=== PATIENT | female | born 1975 | race Caucasian/White ===

== ENCOUNTER 2017-07-26 22:43 | Emergency (ER) | payer BC ==
[~2017-07-26] VITALS: Ht 172.7 cm; Wt 103.6 kg
[2017-07-26 23:04] LABS: COLLECTION METHOD CLEAN CATCH
[2017-07-26 23:11] LABS: MUCOUS Present /lpf; PH 6 (5-8); URINE APPEARANCE Cloudy; URINE BACTERIA Rare /hpf; URINE BILIRUBIN Negative (NEGATIVE); URINE BLOOD 3+ (NEGATIVE); URINE COLOR Yellow; URINE GLUCOSE Negative (NEGATIVE); URINE KETONE Trace (NEGATIVE); URINE LEUKOCYTE ESTERASE 1+ (NEGATIVE); URINE PROTEIN(semi-quant) 1+ (NEGATIVE)
[2017-07-26 23:18] LABS: ADD PATHOLOGY DIFF REVIEW NO
[2017-07-26 23:20] LABS: MEAN CELL VOLUME 81 fl (80.0-100.0); MEAN CORPUSCULAR HGB CONC 33 g/dl (33.0-37.0); MEAN PLATELET VOLUME 11.7 fl (7.4-10.4); PLATELET COUNT 376 K/mm3 (130-400); RED BLOOD COUNT 4.42 M/mm3 (4.10-5.30); WHITE BLOOD COUNT 14.2 K/mm3 (4.8-10.8)
[2017-07-26 23:23] LABS: HEMATOCRIT 35.9 % (37.0-47.0); HEMOGLOBIN 11.7 g/dl (12.5-16.0); MEAN CORPUSCULAR HEMOGLOBIN 26 pg (27.0-31.0)
[2017-07-26 23:32] LABS: ADJUSTED CALCIUM 9.7 mg/dL (8.4-10.2); ALBUMIN 3.9 gm/dL (3.5-5.0); BILIRUBIN,TOTAL 0.3 mg/dL (0.0-1.0); CALCIUM 9.6 mg/dL (8.4-10.2); CREATININE, serum 0.79 mg/dL (0.52-1.25); POTASSIUM 3.9 mmol/L (3.4-5.0); TOTAL PROTEIN 6.6 gm/dL (6.4-8.2)
[2017-07-26 23:35] LABS: BAND 3 % (0-10); LYMPHOCYTE 6 % (20.0-51.0); NEUTROPHILS 88 % (42.0-75.2); PLATELET ESTIMATE NORMAL (NORMAL); TOTAL CELLS COUNTED 100
[2017-07-27] MEDS ORDERED: BACTRIM DS 8001 TAB PO (00:07)
[2017-07-27 00:49] VITALS: TEMP 100.5
[2017-07-27 01:15] VITALS: BP 127/78; PULSE 105
== END 2017-07-27 01:18 | disposition home or self-care (01) ==
LOC: COL.ER 22:43
PROVIDERS: Family Medicine
DX: N12 Tubulo-interstitial nephritis, not specified as acute or chronic (principal); F41.9 Anxiety disorder, unspecified; Z98.51 Tubal ligation status
CPT/HCPCS: J0696; J2270; J2550; J7030

== ENCOUNTER → 2017-07-27 | Outpatient (CLI) | payer BC ==
[~2017-07-27] MED LIST: BACTRIM DS 8001 TAB PO
[2017-07-27 22:41] VITALS: BP 112/67; PULSE 98; TEMP 99.3
== END ==
LOC: COL.ER 22:36
DX: Z79.2 Long term (current) use of antibiotics (principal)
CPT/HCPCS: J0696

== ENCOUNTER 2018-07-04 14:01 | Emergency (ER) | payer BC ==
[~2018-07-04] VITALS: Ht 172.7 cm; Wt 97.7 kg
[2018-07-04 14:03] VITALS: TEMP 98.7
[2018-07-04 14:52] LABS: BASO # 0.1 (0.0-0.2); BASO % 0.9 % (0.0-2.0); EOS # 0.1 (0.0-0.7); EOS % 1.4 % (0-4.0); GRAN # 5.5 (1.4-6.5); GRAN % 56.5 % (42.2-75.2); HEMOGLOBIN 10.4 g/dl (12.5-16.0); LYMPH # 3.3 (1.2-3.4); LYMPH % 34.2 % (20.0-51.0); MEAN CELL VOLUME 73 fl (80.0-100.0); MEAN CORPUSCULAR HEMOGLOBIN 23 pg (27.0-31.0); MEAN CORPUSCULAR HGB CONC 31 g/dl (33.0-37.0); MEAN PLATELET VOLUME 11.1 fl (7.4-10.4); MONO # 0.7 (0.1-0.6); MONO % 6.7 % (1.7-9.3); PLATELET COUNT 392 K/mm3 (130-400); RED BLOOD COUNT 4.56 M/mm3 (4.10-5.30); REDCELL DISTRIBUTION WIDTH-CV 15.8 % (11.5-14.5)
[2018-07-04 14:55] LABS: HEMATOCRIT 33.1 % (37.0-47.0)
[2018-07-04 15:02] LABS: COLLECTION METHOD CLEAN CATCH
[2018-07-04 15:10] LABS: ALANINE AMINOTRANSFERASE 30 U/L (9-52); ALBUMIN 3.7 gm/dL (3.5-5.0); ALKALINE PHOSPHATASE 65 U/L (50-136); ANION GAP 6 mmol/L (7-16); AST,SGOT 44 U/L (15-37); BILIRUBIN,TOTAL 0.5 mg/dL (0.0-1.0); BLOOD UREA NITROGEN 9 mg/dL (7-17); CALCIUM 8.7 mg/dL (8.4-10.2); CARBON DIOXIDE 28 mmol/L (22-30); CHLORIDE 104 mmol/L (98-107); CREATININE, serum 0.57 mg/dL (0.52-1.25); GLUCOSE 100 mg/dL (74-106); POTASSIUM 3.8 mmol/L (3.4-5.0); SODIUM 137 mmol/L (137-145); TOTAL PROTEIN 6.5 gm/dL (6.4-8.2)
[2018-07-04 15:11] LABS: ACETAMINOPHEN < 10 ug/mL (10-30)
[2018-07-04 15:12] LABS: ALCOHOL(ethanol),MEDICAL < 10 mg/dL; SALICYLATE < 1.0 mg/dL
[2018-07-04 15:21] LABS: MUCOUS Present /lpf; PH 6 (5-8); SQUAMOUS EPITHELIAL 0-2 /hpf; URINE APPEARANCE Clear; URINE BACTERIA None Seen /hpf; URINE BILIRUBIN Negative (NEGATIVE); URINE BLOOD 3+ (NEGATIVE); URINE COLOR Yellow; URINE GLUCOSE Negative (NEGATIVE); URINE KETONE Negative (NEGATIVE); URINE LEUKOCYTE ESTERASE 1+ (NEGATIVE); URINE NITRATE Negative (NEGATIVE); URINE PROTEIN(semi-quant) Negative (NEGATIVE); URINE RBC 0-2 /hpf; URINE UROBILINOGEN Negative (NEGATIVE)
[2018-07-04 15:24] LABS: TRICYCLIC ANTIDEPRESS URINE NEGATIVE
[2018-07-04 23:30] VITALS: BP 114/70; PULSE 82
== END 2018-07-04 23:39 | disposition home or self-care (01) ==
LOC: COL.ER 14:01
PROVIDERS: Nurse Practitioner
DX: F32.9 Major depressive disorder, single episode, unspecified (principal); F41.9 Anxiety disorder, unspecified; F17.210 Nicotine dependence, cigarettes, uncomplicated

== ENCOUNTER → 2019-11-30 | Outpatient (CLI) | payer BC ==
[2019-11-30 13:11] LABS: BASO # 0.1 (0.0-0.2); EOS # 0.2 (0.0-0.7); EOS % 1.5 % (0-4.0); GRAN # 6.3 (1.4-6.5); GRAN % 60.2 % (42.2-75.2); HEMATOCRIT 37.6 % (37.0-47.0); HEMOGLOBIN 11.4 g/dl (12.5-16.0); LYMPH % 28.8 % (20.0-51.0); MEAN CELL VOLUME 74 fl (80.0-100.0); MEAN CORPUSCULAR HEMOGLOBIN 22 pg (27.0-31.0); MEAN CORPUSCULAR HGB CONC 30 g/dl (33.0-37.0); MEAN PLATELET VOLUME 10.5 fl (7.4-10.4); MONO # 0.8 (0.1-0.6); MONO % 7.9 % (1.7-9.3); PLATELET COUNT 403 K/mm3 (130-400); RED BLOOD COUNT 5.09 M/mm3 (4.10-5.30); REDCELL DISTRIBUTION WIDTH-CV 18.1 % (11.5-14.5)
[2019-11-30 13:20] LABS: ALBUMIN 4.3 gm/dL (3.5-5.0); BILIRUBIN,TOTAL 0.5 mg/dL (0.0-1.0); CALCIUM 9.2 mg/dL (8.4-10.2); CREATININE, serum 0.57 (0.52-1.25); POTASSIUM 4.1 mmol/L (3.4-5.0); TOTAL PROTEIN 7.3 gm/dL (6.4-8.2)
[2019-11-30 13:51] LABS: THYROID STIMULATING HORMONE 1.21 uIU/mL (0.465-4.680)
== END ==
LOC: COL.LAB 12:40
PROVIDERS: Family Medicine
DX: R53.83 Other fatigue (principal); R19.7 Diarrhea, unspecified

== ENCOUNTER → 2020-12-22 | Outpatient (CLI) | payer BC | LOC: COL.RAD 12:15 | DX: N92.0 Excessive and frequent menstruation with regular cycle (principal); R93.89 Abnormal findings on diagnostic imaging of other specified body structures; N85.2 Hypertrophy of uterus ==

== ENCOUNTER 2022-08-05 06:58 | Day surgery (SDC) | payer BC ==
[~2022-08-05] VITALS: Ht 172.7 cm; Wt 95.0 kg
[2022-08-05 08:06] VITALS: BP 118/89; PULSE 77; TEMP 97.2
[2022-08-05] MEDS ORDERED: ZOLOFT 100MG100 MG PO (08:09)
[2022-08-05] MEDS ORDERED: MOUNJARO7.5 MG/0.5 SQ (08:10)
[2022-08-05 08:35] VITALS: BP 109/97; PULSE 81; TEMP 97.6
--- NOTE | 2022-08-05 08:35 | NUR ---
Patient arrives to [facility] bay [facility] via cart, accompanied by Endo RN. She is alert and oriented. She ambulates to the chair in her room with standby assist and steady gait. Monitoring is applied -VSS and WNL on room air. PIV to TKO. She denies pain or nausea. SHe is offered and receives coffee and a muffin to eat. Call light in reach.
[2022-08-05 08:45] VITALS: BP 124/94; PULSE 79
[2022-08-05 09:00] VITALS: BP 121/91; PULSE 80
--- NOTE | 2022-08-05 09:15 | NUR ---
Patient has met discharge criteria. Discharge instructions are discussed. She denies any questions and verbalizes understanding. PIV is removed with catheter intact and hemostasis achieved. She changes to her clothing independently. SHe is escorted to the exit via wheelchair by staff. She is discharged to the care of her mother in law, who drives her home in a private vehicle at 0915.
== END 2022-08-05 09:15 | disposition home or self-care (01) ==
LOC: SDCO 06:58
DX: Z12.11 Encounter for screening for malignant neoplasm of colon (principal); F17.210 Nicotine dependence, cigarettes, uncomplicated
CPT/HCPCS: J2704; J7120

== ENCOUNTER → 2023-07-08 | Outpatient (CLI) | payer BC ==
[~2023-07-08] MED LIST changes: +MOUNJARO7.5 MG/0.5 SQ; +ZOLOFT 100MG100 MG PO
== END ==
LOC: MC.RAD 10:16
DX: N60.02 Solitary cyst of left breast (principal)